=== PATIENT | female | born 1985 | race Two or more races ===

== ENCOUNTER 2024-11-02 20:51 | Observation (INO) | payer SELFPAY ==
[~2024-11-02] VITALS: Ht 162.6 cm; Wt 99.8 kg
[2024-11-02 21:44] LABS: Basophils # (auto) 0 10 ^3/uL (0-0.2); Eosinophils # (auto) 0 10 ^3/uL (0-0.8); Hemoglobin 10.7 g/dL (12.2-16.2); Lymphocytes # (auto) 1.5 10 ^3/uL (0.4-5.4); Monocytes # (auto) 0.6 10 ^3/uL (0-1.3)
[2024-11-02 21:47] LABS: Basophils % (auto) 0.3 % (0.0-2.0); Eosinophils % (auto) 0.5 % (0.0-7.0); Hematocrit 33.3 % (36.0-46.0); Lymphocytes % (auto) 16.6 % (10.0-50.0); Mean Corpuscular Hemoglobin 23.6 pg (28.0-32.0); Mean Corpuscular Hgb Conc. 32.2 g/dL (32.0-36.0); Mean Corpuscular Volume 73.3 fL (80.0-100.0); Monocytes % (auto) 6.7 % (0.0-12.0); Neutrophils % (auto) 75.9 % (37.0-80.0); Platelet Count (auto) 295 10^3/uL (140-450); Red Blood Cells 4.55 10^6/uL (4.0-5.20); Red Cell Distribution Width 17.3 % (11.8-14.3); White Blood Cell 9.2 10^3/uL (4.4-10.8)
[2024-11-02 21:53] LABS: Urine Bacteria FEW /hpf (None Seen); Urine Blood 1+ /uL (Negative); Urine Budding Yeast OCCASIONAL /hpf (None Seen); Urine Clarity Ex.Turbid (Clear); Urine Color Light-Violet (Yellow); Urine Protein, UAD TRACE (Negative); Urine Specific Gravity 1.013 (1.001-1.035); Urine Squamous Epithelial Cell FEW /hpf (<5); Urine Urobilinogen Normal (Negative); Urine WBC 6 /HPF (0-5); Urine pH 5.5 (5.0-9.0)
[2024-11-02 21:58] LABS: Alanine Aminotransferase 10 U/L (7-40); Albumin 3.8 g/dL (3.2-4.8); Anion Gap 12 (5-15); BUN/Creatinine Ratio 12.1 (10.0-20.0); Calcium 9.1 mg/dL (8.7-10.4); Chloride 106 mmol/L (98-107); Potassium 3.5 mmol/L (3.5-5.1); Sodium 137 mmol/L (136-145); Total Protein 6.6 g/dL (5.7-8.2)
[2024-11-02 21:59] LABS: Bilirubin, Total 0.3 mg/dL (0.2-1.0)
[2024-11-02 22:00] LABS: INR 0.91 (0.9-1.15); Partial Thromboplastin Time 27.6 SEC (24.5-34.5); Prothrombin Time 9.7 sec (9.3-11.8)
--- NOTE | 2024-11-02 22:00 | DVH ---
EXAM: US OB ULTRASOUND COMP GTR 14 WKS HISTORY: No PNC TECHNIQUE: Multiple real-time grayscale images of the gravid uterus with duplex Doppler color flow an d M-mode spectral analysis. COMPARISON: None FINDINGS: IUP single live fetus at 38 weeks 4 days average ultrasound age (AUA) based on composite averages of the BPD, head circumference, abdominal circumference and femur length Age based on (early ultrasound) : MEASUREMENTS: BPD: 9.05 cm GA: 36 w 5 d HC: 33.17 cm GA: 37 w 6 d AC: 35.63 cm GA: 39 w 4 d FL: 7.82 cm GA: 40 w 0 d Estimated weight 3,669 grams; 8 lbs 1 oz, 71.5 percentile. heart rate 156 beats per minute FIONA 13.67 cm, MVP ANATOMIC SURVEY: Single Vertex Presentation Fundal placenta without previa or abruption Cervix length not measured UMBILICAL ARTERY DOPPLER: Umbilical cord analysis demonstrates no reversal of flow and no diminished flow. Pulsatility index, resistive index and S/D ratio are within 50-95th percentile. Umbilical artery flow: No reversal of flow. Abdominal cord insertion: Pulsatility index 1.3, RI S/D ratio: Placental cord insertion: Pulsatility index 0.8, RI S/D ratio: Mid cord: Pulsatility index 1.0, RI S/D ratio: [email or web address] IMPRESSION: 1. IUP single live fetus at 38 weeks 4 days AUA corresponding to an TAVIA of 0525 2024. 2. No abnormality detected.
[2024-11-02 22:01] LABS: Alkaline Phosphatase 118 U/L (46-116); Aspartate Aminotransferase < 8 U/L (13-40); Blood Urea Nitrogen 8 mg/dL (9-23); Carbon Dioxide 19 mmol/L (20-31); Glucose 203 mg/dL (74-106)
[2024-11-02 22:09] LABS: Fern Testing Negative
[2024-11-02 22:12] LABS: Amphetamine Screen, Urine Neg (NEGATIVE)
[2024-11-02 22:32] LABS: Vaginal Bacteria Many; Vaginal Clue Cells None Seen; Vaginal Epithelial Cells Moderate; Vaginal Trichomonas Present
[2024-11-02 22:45] LABS: Barbiturate Scree,Urine Neg (NEGATIVE); Benzodiazephine Screen, Urine Neg (NEGATIVE); Cannabinoid Screen, Urine Neg (NEGATIVE); Opiate Scree,Urine Neg (NEGATIVE); Phencyclidine Screen, Urine Neg (NEGATIVE)
[2024-11-02] MEDS ORDERED: MET500T PO (23:00)
[2024-11-02] MEDS ORDERED: CEPH250C PO (23:00)
[2024-11-02 23:04] LABS: Cocaine Screen, Urine Neg (NEGATIVE)
--- NOTE | 2024-11-02 23:25 | DVHDS2 ---
Physician Discharge Progress N Final Diagnosis: 39 weeks gestation GDMA2 UTI Trichomans vaginalis Condition on Discharge: Good Disposition: Home Discharge Instructions: Diet: Consistent carbohydrate Diet comment: Diabetic diet Activity: No Restrictions, As Tolerated Follow Up/Referral: [facility] for Induction of labor on 11/05/24 and PRN Medications: Keflex 500mgs PO QID x 7D Flagyl 2gms PO once Continue Metformin as ordered Follow Up Care: Discharge Statement: "Patient was advised to return to the ER or call 911 if any headaches, dizziness, shortness of breath, chest pain, abdominal pain, bleeding, fevers, or worsening of medical condition. Patient was counseled about treatment plan, medications, possible side effects, patientverbalized understanding. All questions were answered to the best of my ability. This discharge took greater then 30 minutes in planning, reviewing documentation, counseling the patient, and discussing with other team members." Discharge Care Plan Problem Knowledge deficit, Increase in fluid intake Goals Know Disease Process, Verbalize understanding Instructions Take Rx medications, Notify MD of any issues Visit Coding OBGYN Date of Service: November 02, 2024 Billing Provider: GIULIA ROBERT CNM OUTSIDE SALES ENGINEER Common Visit Codes: [id number] OBS CARE (MOD) OUTSIDE SALES ENGINEER Procedure Codes: 21312-84- NON-STRESS TEST GIULIA ROBERT CNM November 02, 2024 23:25
== END 2024-11-02 23:54 | disposition home or self-care (01) ==
LOC: LDRP 20:51
PROVIDERS: ADMIT Obstetrics & Gynecology; ATTEND Obstetrics & Gynecology
DX: O23.43 Unspecified infection of urinary tract in pregnancy, third trimester (principal); N39.0 Urinary tract infection, site not specified; O24.419 Gestational diabetes mellitus in pregnancy, unspecified control; R53.1 Weakness; R79.1 Abnormal coagulation profile; Z3A.39 39 weeks gestation of pregnancy; Z79.899 Other long term (current) drug therapy; Z98.890 Other specified postprocedural states
CPT/HCPCS: 36415; 59025; 76805; 80053; 80307; 81001; 81002; 82948; 82962; 83036; 84112; 85025; 85610; 85730; 86703; 86780; 86850; 86900; 86901; 87086; 87210; 87340; 94760; G0378; Q0114

== ENCOUNTER 2024-11-05 19:04 | Observation (INO) | payer MEDICAID, OTHER ==
[~2024-11-05 19:04] MED LIST: CEPH250C PO; MET500T PO
--- NOTE | 2024-11-05 21:03 | DVH ---
BIOPHYSICAL PROFILE HISTORY: GDM A2 TECHNIQUE: Multiple transabdominal real-time grayscale sonographic images through the gravid uterus of the fetus with duplex Doppler color flow and M-mode spectral analysis FINDINGS: BIOPHYSICAL PROFILE: breathing score: 2 movement score: 2 tone score: 2 Quantitative FIONA score: 2 (FIONA: 20.8 Cm.) prior FIONA 13.7 cm on 11/02/2024. Current FIONA a taken twic e. Total score: 8/8 The cervix closed not measured Single live fetus in cephalic presentation. heart rate 148 beats per minute. Right lateral Grade 2 placenta without previa or abruption Single live fetus at 39 weeks 5 days Biophysical profile score 8/8 corresponding to an TAVIA of 11/07/2024 Estimated weight not calculated g IMPRESSION: 1. Biophysical profile score: 8/8
--- NOTE | 2024-11-06 02:53 | DVHDS2 ---
Physician Discharge Progress N Final Diagnosis: IUP with GDMA2, 39.5 week Secondary Diagnosis: Encounter for NST/BPP/FIONA Operations or Procedures: Operations or Procedures NST/BPP/ FIONA NST reactive BPP 01/26, FIONA adequate Commentary: Commentary status reassuring Condition on Discharge: Stable Disposition: Home Discharge Instructions: Diet: Consistent carbohydrate Activity: No Restrictions, As Tolerated Follow Up/Referral: [facility] to [facility] on [facility]24 at 1900 for Induction of Labor Medications: Continue all prescribed medications Follow Up Care: Discharge Statement: "Patient was advised to return to the ER or call 911 if any headaches, dizziness, shortness of breath, chest pain, abdominal pain, bleeding, fevers, or worsening of medical condition. Patient was counseled about treatment plan, medications, possible side effects, patientverbalized understanding. All questions were answered to the best of my ability. This discharge took greater then 30 minutes in planning, reviewing documentation, counseling the patient, and discussing with other team members." Visit Coding OBGYN Date of Service: November 06, 2024 Billing Provider: RAFFY VARGAS DO LABORER AMMUNITION ASSEMBLY Common Visit Codes: 94511-ILD/OBS SAME DATE (MOD) LABORER AMMUNITION ASSEMBLY Procedure Codes: 78252-19- NON-STRESS TEST RAFFY VARGAS DO November 06, 2024 02:53
== END 2024-11-05 21:43 | disposition home or self-care (01) ==
LOC: LDRP 19:04
PROVIDERS: ADMIT Obstetrics & Gynecology; ATTEND Obstetrics & Gynecology
DX: O24.419 Gestational diabetes mellitus in pregnancy, unspecified control (principal); Z98.890 Other specified postprocedural states; Z79.899 Other long term (current) drug therapy; Z3A.39 39 weeks gestation of pregnancy
CPT/HCPCS: 59025; 76819; 81002; G0378

== ENCOUNTER 2024-11-07 06:32 | Inpatient (IN) | payer MEDICAID ==
[~2024-11-07] VITALS: Ht 30.5 cm; Wt 0.5 kg
[2024-11-07] MEDS ORDERED: LIDOCAINE 2%HCL (LOCAL ANESTH.) INJ 20ML MDV IJ PRN (19:15)
[2024-11-07] MEDS ORDERED: NALBUPHINE HCL 10 MG/1ml INJECTION IV PRN (19:15)
[2024-11-07] MEDS ORDERED: PENICILLIN G POT 5MIL/D5 50ML 50 ML IV ONE (19:15)
[2024-11-07 19:50] LABS: Basophils # (auto) 0 10 ^3/uL (0-0.2); Eosinophils # (auto) 0 10 ^3/uL (0-0.8); Eosinophils % (auto) 0.4 % (0.0-7.0); Hemoglobin 10.9 g/dL (12.2-16.2); Lymphocytes # (auto) 1.7 10 ^3/uL (0.4-5.4); Monocytes # (auto) 0.6 10 ^3/uL (0-1.3)
[2024-11-07 19:52] LABS: Basophils % (auto) 0.5 % (0.0-2.0); Hematocrit 33.6 % (36.0-46.0); Lymphocytes % (auto) 18.9 % (10.0-50.0); Mean Corpuscular Hemoglobin 23.8 pg (28.0-32.0); Mean Corpuscular Hgb Conc. 32.5 g/dL (32.0-36.0); Mean Corpuscular Volume 73.1 fL (80.0-100.0); Monocytes % (auto) 6.5 % (0.0-12.0); Neutrophils # (auto) 6.7 10 ^3/uL (1.6-8.6); Neutrophils % (auto) 73.7 % (37.0-80.0); Platelet Count (auto) 300 10^3/uL (140-450); Red Blood Cells 4.59 10^6/uL (4.0-5.20); Red Cell Distribution Width 17.7 % (11.8-14.3); White Blood Cell 9.2 10^3/uL (4.4-10.8)
[2024-11-07 20:07] LABS: INR 0.92 (0.9-1.15); Partial Thromboplastin Time 27.6 SEC (24.5-34.5); Prothrombin Time 9.8 sec (9.3-11.8)
[2024-11-07 20:14] LABS: Albumin 3.9 g/dL (3.2-4.8); Anion Gap 10 (5-15); BUN/Creatinine Ratio 22.4 (10.0-20.0); Bilirubin, Total 0.3 mg/dL (0.2-1.0); Blood Urea Nitrogen 11 mg/dL (9-23); Calcium 9.2 mg/dL (8.7-10.4); Carbon Dioxide 21 mmol/L (20-31); Chloride 106 mmol/L (98-107); Glucose 106 mg/dL (74-106); Potassium 3.7 mmol/L (3.5-5.1); Sodium 137 mmol/L (136-145); Total Protein 6.8 g/dL (5.7-8.2)
[2024-11-07 20:16] LABS: Alanine Aminotransferase < 9 U/L (7-40); Alkaline Phosphatase 117 U/L (46-116); Aspartate Aminotransferase < 8 U/L (13-40)
--- NOTE | 2024-11-07 20:20 | DVHHP2 ---
OB CC & HPI Date Date of Admission: November 07, 2024 Patient Identification: : 2 Para: 1 EDC: November 07, 2024 EGA: 40.0 Chief Complaints: Reason for admission: induction of labor Indication for induction: medical complication (GDM, A2 and AMA) History of Present Complaints 39yo IUP@40.0wks presents for scheduled IOL for GDM, A2 Denies UCs/LOF/VB/VICK/vision changes/RUQ pain. Endorses +FM. PNC in [place] (no records available), PNC complicated by AMA and GDM,A2 on metformin per pt Dating based on LMP c/w 7wk sono per pt. GBS not done. OB hx: #1 - , 3300g, uncomplicated in 2006 #2 - current Past Medical History Cardiac: No pertinent Hx Pulmonary: No pertinent Hx Central Nervous System: No pertinent Hx GI: No pertinent Hx Hemotology/Oncology: No pertinent Hx Hepatobiliary: No pertinent Hx Psychiatric: No pertinent Hx Musculoskeletal: No pertinent Hx Rheumotologic: No pertinent Hx Infectious Disease: No peritnent Hx ENT: No pertinent Hx Renal/: No pertinent Hx Endocrine: No pertinent Hx Dermatology: No pertinent Hx Past Surgical History: No pertinent Hx OB History OB History Care: Good Care (per pt) Ultrasounds: Normal mid trimester US (per pt) Obstetrical Complications: Gestational Diabetes (A2) Medical Complications: None Allergies: Coded Allergies: NO KNOWN ALLERGIES (Unverified , 11/02/24) Home Meds Active Scripts Cephalexin (KEFLEX CAPSULE) 250 Mg Cp, 2 CAP PO QID, #56 CAP Prov:GIULIA ROBERT CNM 11/02/24 Metronidazole (Metronidazole) 500 Mg Tab, 2 GM PO ONCE, #1 TAB Do not drink alcohol Prov:GIULIA ROBERTM 11/02/24 Home Meds Pt is midway done with her course of keflex for UTI. She was not able to fill rx for metrondiazole to treat trichomoniasis and BV due to insurance issue. Current Medications Current Medications Medications (Trade) Dose Ordered Sig/Albertina Route PRN Reason Start Time Stop Time Status Last Admin Lactated Ringer's 1,000 ml @ 125 mls/hr Q8H IV 11/07/24 19:15 Nalbuphine HCl (Nubain) 10 mg Q4HP PRN IV MODERATE PAIN (4-6 PAIN SCALE) 11/07/24 19:15 Penicillin G Potassium [id number] units/Dextrose 50 ml @ 100 mls/hr Q4H IV 11/07/24 23:15 Witch Maddie (Tucks) 1 pad PRN PRN TOP PERINEAL AREA DISCOMFORT 11/07/24 19:15 Sodium Lauryl Sulfate (Phisoderm) 240 ml PRN PRN TOP PERINEAL AREA DISCOMFORT 11/07/24 19:15 Benzocaine (Dermoplast) 1 applic PRN PRN TOP PERINEAL AREA DISCOMFORT 11/07/24 19:15 Misoprostol (Cytotec) 50 mcg Q4HPRN PRN PO CERVICAL RIPENING 11/07/24 19:15 Lidocaine HCl (Xylocaine) 20 ml ONCE PRN IJ PERINEAL AREA DISCOMFORT 11/07/24 19:15 Family & Social History Family/Social History Past Family/Social History: denies Blood Type: A+ Rubella: immune RPR/VDRL: Negative GBS Status: Unknown HBsAG: Negative Review of Systems Constitutional: No symptom reported Ears, Nose, & Throat: No symptom reported Eyes: No symptom reported Pulmonary/Respiratory: No symptom reported Cardiovascular: No symptom reported Gastrointestinal: No symptom reported Genitourinary: No symptom reported Musculoskeletal: No symptom reported Skin: No symptom reported Psychiatric: No symptom reported Endocrine: No symptom reported Hemotologic/Lymphatic: No symptom reported OB Admission Exam Physical Exam Vitals: VSS, see CPN HEENT: TMs Normal, Fontanelles Normal, Nasal Mucosa Normal, Eyes non-injected, Oropharynx Normal, PERRLA, Moist Membranes, EOMI Heart: Rhythm Normal Lungs: Clear Abdomen: Gravid Extremities: Normal Reflexes: Normal Pelvic Exam: SVE by RN: 1/thick/-3 EFW on 11/02/24 by sono: 8lbs 1oz, vertex Membranes: Intact Heart Rate: 140's Accelerations: Accelerations Present Decelerations: No Decelerations Azure Principal Solution Specialist Variability: Average (6-25) Contractions on Admission: None OB Plan Plan Admitting Diagnosis: IOL for GDM, A2 and AMA Plan: Induction Induction Methd: Misoprostol protocol Other Plan: A: 39yo IUP@40.0wks Induction of Labor GDM, A2 AMA Category I EFM Intact Membranes GBS unknown P: Admit to L&D Informed consent obtained Discussed risks, benefits, alternatives of IOL for GDM, A2/AMA with pt. Pt consents to IOL with PO cytotec. Start IV PCN for GBS prophylaxis when pt is ROM or in active labor monitoring per order Routine labs ordered Pain mgmt PRN Frequent position changes in and out of bed encouraged Limit SVE unless necessary Intrauterine resuscitation PRN Anticipate Dr. Robles offered primary section, pt declined. Will continue to co- manage with Dr. Robles. Visit Coding OBGYN Date of Service: November 08, 2024 Billing Provider: KRUPA RODRIGUEZ CNM MILLER HEAD WET PROCESS Common Visit Codes: [id number] INP/OBS CARE (HIGH) KRUPA RODRIGUEZ CNM November 07, 2024 20:20
[2024-11-07 20:25] LABS: Urine Bacteria FEW /hpf (None Seen); Urine Blood TRACE /uL (Negative); Urine Clarity Turbid (Clear); Urine Color Yellow (Yellow); Urine Mucus FEW (None Seen); Urine Protein, UAD TRACE (Negative); Urine Specific Gravity 1.031 (1.001-1.035); Urine Squamous Epithelial Cell MOD /hpf (<5); Urine Urobilinogen Normal (Negative); Urine WBC 38 /HPF (0-5); Urine pH 5.5 (5.0-9.0)
[2024-11-07 20:37] LABS: Amphetamine Screen, Urine Neg (NEGATIVE); Barbiturate Scree,Urine Neg (NEGATIVE); Benzodiazephine Screen, Urine Neg (NEGATIVE); Cannabinoid Screen, Urine Neg (NEGATIVE); Cocaine Screen, Urine Neg (NEGATIVE); Opiate Scree,Urine Neg (NEGATIVE); Phencyclidine Screen, Urine Neg (NEGATIVE)
[2024-11-07] MEDS: miSOPROStol 50 MCG per PRE-CUT 1/2 TAB PO PRN (21:01)
[2024-11-07] MEDS: DERMOPLAST 60ML BOTTLE TOP PRN (21:02)
[2024-11-07] MEDS: PHISODERM TOP SOLN 240ML BTL TOP PRN (21:02)
[2024-11-07] MEDS: WITCH HAZEL-GLYCERIN PAD TOP PRN (21:02)
[2024-11-07] MEDS: cefTRIAXone 1GM/50ML D5W 50 ML IV STA (21:02)
[2024-11-07] MEDS: LACTATED RINGER'S 1,000 ML IV SCH (21:16)
[2024-11-07] MEDS: metroNIDAZOLE 500 MG TAB PO STA (21:37)
[2024-11-07] MEDS ORDERED: PENICILLIN G POTASSIUM 2,500,000 UNITS in D5W 5% 50 ML IV SCH (23:15)
[2024-11-08] VITALS (17 sets, daily range): BP systolic 107–139; BP diastolic 54–97; PULSE 70–103; RESP 14–16; TEMP 98–98.7; O2SAT 92–96
[2024-11-08] MEDS: ePHEDrine SULFATE 50 MG/ML AMP ONE (04:25)
[2024-11-08] MEDS: ROPIVACAINE HCL 200 ML ONE (05:23)
[2024-11-08] MEDS: PENICILLIN G POT 5MIL/D5 50ML 50 ML IV ONE (06:31)
[2024-11-08] MEDS ORDERED: MORPHINE SULF PF 5 MG/10 ML VIAL ONE (07:15)
[2024-11-08] MEDS ORDERED: fentaNYL CITRATE 100 MCG/2 ML VL ONE ×2 (07:15→07:16)
[2024-11-08] MEDS ORDERED: LACTATED RINGER'S 1,000 ML IV SCH (07:15)
[2024-11-08] MEDS ORDERED: SODIUM BICARB 8.4% 50Meq/50ml SYR Vial IV ONE (07:16)
[2024-11-08] MEDS ORDERED: LIDOCAINE 2% (LOCAL ANESTH.) PF 5ml SDV ONE (07:16)
[2024-11-08] MEDS ORDERED: ONDANSETRON HCL 4 MG/2 ML VIAL ONE (07:16)
[2024-11-08] MEDS ORDERED: ePHEDrine SULFATE 50 MG/ML AMP ONE (07:16)
[2024-11-08] MEDS ORDERED: MIDAZOLAM HCL 2MG/2ML 2ml VIAL (1mg/ml) ONE (07:16)
[2024-11-08] MEDS ORDERED: oxyTOCIN 10 UNIT/ML 10ML VIAL ONE (07:16)
[2024-11-08] MEDS: GUM (CHEWING) 1 GUM CHEW CHEW ONE (07:30)
[2024-11-08] MEDS ORDERED: ONDANSETRON HCL 4 MG/2 ML VIAL IV PRN (07:30)
--- NOTE | 2024-11-08 07:30 | DVHHP ---
ADMIT DATE: 11/08/2024 CHIEF COMPLAINT: Nonreassuring heart tracing, repetitive deceleration, fetus at risk. HISTORY OF PRESENT ILLNESS: The patient is a 39-year-old 2, para 1 with due date 11/07, estimated gestational age of 40 weeks, admitted for induction of labor. The patient has had limited care, poorly controlled diabetes and she is advanced maternal age. The patient was admitted, received Cytotec, however started having deceleration for which the patient is being taken for primary for nonreassuring heart tracing, fetus at risk. PAST MEDICAL HISTORY: None. PAST SURGICAL HISTORY: None. SOCIAL HISTORY: None. FAMILY HISTORY: None. ACID RETORT OPERATOR HISTORY: One vaginal delivery. REVIEW OF SYSTEMS: Consistent with HPI. ALLERGIES: No known drug allergies. PHYSICAL EXAMINATION: VITAL SIGNS: Stable, afebrile. HEENT: Within normal limits. CARDIOVASCULAR: Regular rate and rhythm. LUNGS: Clear to auscultation. BREASTS: Symmetrical, no masses. ABDOMEN: Gravid. Positive heart. PELVIC: 4 cm, 60%, -3. EXTREMITIES: No clubbing, cyanosis, or edema. IMPRESSION: * Intrauterine at 40+ weeks. * Induction of labor failed due to nonreassuring ultrasound, fetus at risk. * AMA. * GDMA2, poorly controlled. * Limited care. PLAN: Primary low transverse section. Informed consent obtained. Risks and complications of surgery including infection, bleeding, hematoma formation, injury to bowel or bladder, surrounding organs, possibility of DVT, pulmonary embolism, and risks of anesthesia discussed with the patient. Options reviewed. All questions answered. The patient fully understands. She wishes to proceed with planned procedure. DO JOVANNI Dunlap/JEROME TID: [id number] RECEIPT: [id number]
[2024-11-08] MEDS: CARBOPROST TROMETHAMINE 250 MCG/1ML VIAL IM ONE ×3 (08:03→10:03)
--- NOTE | 2024-11-08 09:08 | DVHOP2 ---
Operative Report DATE OF OPERATION: 11/08/24 PREOPERATIVE DIAGNOSES: Term with nonreassuring fht ,fetus at risk,ama,poorly controlled gdma2,limited care POSTOPERATIVE DIAGNOSES: same,op,uterine atony SURGEON: Sia Robles D.O./david ANESTHESIOLOGIST: kishor TYPE OF ANESTHESIA : epidural CONSENT: The patient was informed of the risks and benefits of the procedure. The patient was informed of the risks and benefits of the procedure. These include but are not limited to , complications of anesthesia, postoperative infection, incomplete relief of symptoms, recurrence of symptoms, damage to blood vessels, nerves and tendons, deep venous thrombosis, pulmonary embolism and possible need for repeat surgery in the future. FINDINGS: Baby [boy] with Apgars of [8] and [9]. Grossly normal appearing tubes and ovaries.op PROCEDURES: Primary low transverse section. PROCEDURE IN DETAIL: The patient was taken to the operating room. She already had an epidural in place. She was then placed in supine position with a leftward tilt. A Pfannenstiel skin incision was made 2 cm above the symphysis pubis. This incision was carried to the underlying layer of fascia. The fascia was nicked in the midline. The incision was extended laterally. The superior aspect of the fascial incision was grasped and elevated. The same procedure was done to the inferior aspect of the fascial incision. The rectus muscles were then in the midline. Peritoneum was identified and entered. Peritoneal incision was extended superiorly and inferiorly with good visualization of the bladder. Bladder blade was inserted. Vesicouterine peritoneum was identified and entered. Lower uterine segment was incised in a transverse fashion. The infant was delivered from vertex presentation. Infant was baby b with Apgars [8] and [9]. Placenta was then removed manually. Uterus was exteriorized and cleared of all clots and debris.uterine atony noted which was managed by hemobate. The incision was repaired using 0 Vicryl in a double-layered fashion. No bleeding was noted. Uterus was then returned to the abdomen. The gutters were cleared off all clots and debris. Peritoneum was closed using 0 Vicryl, fascia was closed using 0 Maxon, and skin was closed using ron. The patient tolerated the procedure well. She was taken to the recovery room in stable condition. ESTIMATED BLOOD LOSS: Estimated blood loss was noted to be 1000 mL. Visit Coding OBGYN Date of Service: November 08, 2024 Billing Provider: SIA ROBLES DO TRUCK SALES MANAGER Common Visit Codes: 83146-[id number] INP/OBS CARE (HIGH) TRUCK SALES MANAGER Procedure Codes: 22585-X-OSLNMRN DELIVERY ONLY SIA ROBLES DO November 08, 2024 09:08
--- NOTE | 2024-11-08 09:10 | POSTOP ---
Post-Operative Note Post-Operative Note Preop Diagnosis iup at 40wks fetus at risk,am,a,gdm,limited care Postop Diagnosis: saME,OP,UTERINE ATONY Operation performed PLTCS Specimen BABY BOY,APAGRS 8-9,OP Anesthesia: Regional Anesthesiologist: ROLF Blood Loss(fluid mgmt) 1000ML Surgeon Chandra Robles Executive Account Manager LEN Implant NA Complications & Mgmt NONE Date 11/08/24 Time 09:08 Visit Coding OBGYN Date of Service: November 08, 2024 Billing Provider: CHANDRA ROBLES DO ADMISSION NURSE COORDINATOR Common Visit Codes: [id number] INP/OBS CARE (HIGH) ADMISSION NURSE COORDINATOR Procedure Codes: 56065-Z-[id number] DELIVERY ONLY CHANDRA ROBLES DO November 08, 2024 09:10
[2024-11-08] MEDS ORDERED: FER325T PO (09:13)
[2024-11-08] MEDS ORDERED: CEPH500T PO (09:13)
[2024-11-08] MEDS ORDERED: DOCU-94 PO (09:13)
[2024-11-08] MEDS ORDERED: HYDR-4072 PO (09:13)
[2024-11-08] MEDS ORDERED: IBUP-1456 PO (09:13)
[2024-11-08] MEDS ORDERED: HYDROmorphone HCL 2 MG/ML VL/or syr IV PRN ×2 (09:30)
[2024-11-08] MEDS ORDERED: diphenhdrAMINE HCL 50 MG/1 ML VL IV PRN (09:30)
[2024-11-08] MEDS ORDERED: MORPHINE SULFATE INJ 2 MG/ml SYRG IV PRN (09:30)
[2024-11-08] MEDS ORDERED: MORPHINE SULFATE 4 MG/ML SYR/VIAL IV PRN (09:30)
[2024-11-08] MEDS ORDERED: NALOXONE HCL 0.4 MG/ML VIAL IV PRN ×2 (09:30)
[2024-11-08] MEDS: PENICILLIN G POTASSIUM 2,500,000 UNITS in D5W 5% 50 ML IV SCH (10:00)
[2024-11-08] MEDS: LACT. RINGERS/OXYTOCIN 20UNITS 500 ML IV ONE ×2 (10:01→13:22)
[2024-11-08] MEDS: ePHEDrine SULFATE 50 MG/ML AMP IV ONE (10:01)
[2024-11-08] MEDS: LIDOCAINE HCL 2 %PF INJ 10ML AMP IJ ONE ×2 (10:02)
[2024-11-08] MEDS: SUCCINYLCHOLINE CHLORIDE 20 MG/ML 10ML VIAL IV ONE (10:02)
[2024-11-08] MEDS: ROCURONIUM 10MG/ML 10ML VIAL IV ONE (10:02)
[2024-11-08] MEDS: LACTATED RINGER'S 1,000 ML IV ONE (10:02)
[2024-11-08] MEDS: LACT. RINGERS/OXYTOCIN 20UNITS 1,000 ML IV ONE (10:03)
[2024-11-08] MEDS: DIPHENOXYLATE W/ATROPINE 2.5 MG TAB ONE (10:03)
[2024-11-08] MEDS: KETOROLAC TROMETH 30 MG/ML 1ML VIAL IV ONE (10:04)
[2024-11-08] MEDS: ACCU-CHEK COMFORT CURVE STRIP VI ONE (10:04)
[2024-11-08] MEDS: METOCLOPRAMIDE HCL 5MG/ml INJ 2ml VIAL IV ONE (10:04)
[2024-11-08] MEDS ORDERED: ACETAMINOPHEN IV 1000 MG/100ML (10MG/ML) IV PRN (10:30)
[2024-11-08] MEDS: ACETAMINOPHEN IV 1000 MG/100ML (10MG/ML) IV PRN (11:07)
[2024-11-08] MEDS: ceFAZolin 1GM/50ML 50 ML IV SCH ×2 (14:05→21:41)
[2024-11-08 20:01] LABS: Basophils # (auto) 0 10 ^3/uL (0-0.2); Basophils % (auto) 0.3 % (0.0-2.0); Eosinophils # (auto) 0 10 ^3/uL (0-0.8); Eosinophils % (auto) 0.2 % (0.0-7.0); Hematocrit 29.3 % (36.0-46.0); Hemoglobin 9.3 g/dL (12.2-16.2); Lymphocytes # (auto) 1.3 10 ^3/uL (0.4-5.4); Lymphocytes % (auto) 10.4 % (10.0-50.0); Mean Corpuscular Hemoglobin 23.5 pg (28.0-32.0); Mean Corpuscular Hgb Conc. 31.7 g/dL (32.0-36.0); Monocytes % (auto) 7.7 % (0.0-12.0); Neutrophils % (auto) 81.4 % (37.0-80.0); Platelet Count (auto) 267 10^3/uL (140-450); Red Blood Cells 3.96 10^6/uL (4.0-5.20); Red Cell Distribution Width 17.6 % (11.8-14.3); White Blood Cell 12.3 10^3/uL (4.4-10.8)
[2024-11-09] VITALS (12 sets, daily range): BP systolic 104–127; BP diastolic 44–72; PULSE 72–86; RESP 16–17; TEMP 97.7–98.9; O2SAT 93–96
--- NOTE | 2024-11-09 01:06 | DVHPN2 ---
Progress Note Date Seen: November 09, 2024 Subjective S: bleeding is less, advancing diet as tolerated, denies lightheaded/dizziness, pain well controlled with oral medications, no concerns with urinating, no flatus/BM yet, ambulating well, well vital signs Vital Sign Date Time Temp Pulse Resp B/P (MAP) Pulse Ox O2 Delivery O2 Flow Rate FiO2 11/08/24 19:00 Room Air 11/08/24 19:00 98.7 101 16 113/67 (82) 94 98.7 11/08/24 08:44 96 Total Intake and Output 11/08/24 11/08/24 11/09/24 15:00 23:00 07:00 Output Total 1000 ml 200 ml Balance -1000 ml -200 ml medications Current Medications Medications Dose Ordered Sig/Albertina Route Start Time Stop Time Status Last Admin Dose Admin Lactated Ringer's 1,000 ml @ 125 mls/hr Q8H IV 11/07/24 19:15 11/08/24 11:07 125 MLS/HR Renetta Perkins 1 pad PRN PRN TOP 11/07/24 19:15 11/07/24 21:02 1 PAD Sodium Lauryl Sulfate 240 ml PRN PRN TOP 11/07/24 19:15 11/07/24 21:02 240 ML Benzocaine 1 applic PRN PRN TOP 11/07/24 19:15 11/07/24 21:02 1 APPLIC Lidocaine HCl 20 ml ONCE PRN IJ 11/07/24 19:15 Lactated Ringer's 1,000 ml @ 125 mls/hr Q8H IV 11/08/24 07:15 Ondansetron HCl 4 mg Q4HP PRN IV 11/08/24 07:30 Acetaminophen 1,000 mg Q8HPRN PRN IV 11/08/24 11:00 11/09/24 06:01 11/08/24 22:37 1,000 MG Cefazolin Sodium 50 ml @ 100 mls/hr Q8H IV 11/08/24 22:00 11/09/24 06:29 11/08/24 21:41 100 MLS/HR laboratory and microbiology Laboratory Tests 11/08/24 19:50 11/07/24 19:36 Test 11/07/24 19:36 Range/Units Serum Glucose 106 74-106 mg/dL Objective O: VSS Chest: heart sounds normal and lung sounds clear bilaterally Abd: soft, non-tender, fundus at U/firm/midline, active bowel sounds, no rebound or guarding Incision: sylke dressing open to air, clean/dry/intact with 25% new drainage noted Ext: Non-tender, No edema, 2+ BLE DTRs Lochia: minimal See lab results Problems(with codes): (1) Precipitous drop in hematocrit (2) S/P primary low transverse Assessment/Plan A/P: 39yo now POD#1 s/p primary -Continue with routine post-op PP care Plan discussed with: Patient, Daughter Visit Coding OBGYN Date of Service: November 09, 2024 Billing Provider: KRUPA RODRIGUEZ CNM FINANCIAL PLANNING ANALYST Common Visit Codes: [id number] INP/OBS CARE(HIGH) KRUPA RODRIGUEZ CNM November 09, 2024 01:05
[2024-11-09] MEDS ORDERED: BISACODYL 10 MG RECT SUPP PR PRN (06:45)
[2024-11-09] MEDS ORDERED: HYDROcodone-ACET 5/325MG TAB PO PRN (06:45)
[2024-11-09 06:50] LABS: Basophils # (auto) 0 10 ^3/uL (0-0.2); Basophils % (auto) 0.2 % (0.0-2.0); Eosinophils # (auto) 0 10 ^3/uL (0-0.8); Hemoglobin 8.6 g/dL (12.2-16.2); Lymphocytes # (auto) 1.4 10 ^3/uL (0.4-5.4); Mean Corpuscular Volume 73.9 fL (80.0-100.0); Monocytes # (auto) 0.9 10 ^3/uL (0-1.3); Monocytes % (auto) 7.9 % (0.0-12.0); Neutrophils # (auto) 9.2 10 ^3/uL (1.6-8.6); White Blood Cell 11.5 10^3/uL (4.4-10.8)
[2024-11-09 06:53] LABS: Eosinophils % (auto) 0.3 % (0.0-7.0); Hematocrit 26.6 % (36.0-46.0); Lymphocytes % (auto) 11.8 % (10.0-50.0); Mean Corpuscular Hemoglobin 23.9 pg (28.0-32.0); Mean Corpuscular Hgb Conc. 32.3 g/dL (32.0-36.0); Neutrophils % (auto) 79.8 % (37.0-80.0); Platelet Count (auto) 244 10^3/uL (140-450)
[2024-11-09] MEDS: HYDROcodone-ACET 5/325MG TAB PO PRN (07:32)
[2024-11-09] MEDS: DOCUSATE SOD 100 MG CAP PO SCH (10:00)
[2024-11-09] MEDS: SIMETHICONE 80 MG CHEWABLE TABLET PO SCH (12:00)
[2024-11-09] MEDS: IBUPROFEN 800 MG TAB PO PRN (15:56)
[2024-11-10 03:00] VITALS: BP 107/61; PULSE 107; RESP 17; TEMP 98.3; O2SAT 95
--- NOTE | 2024-11-10 06:28 | DVHPN2 ---
Chief Complaints Patient reports: No new complaints (Doing well. Pt is ambulating and voiding freely, passing gas, tolerating a regular diet and pain has been well controlled. Pt denies any s/s of depression) Nursing reports: No new complaints Objective Vitals Vital Signs Date Time Temp Pulse Resp B/P (MAP) Pulse Ox O2 Delivery O2 Flow Rate FiO2 11/10/24 03:00 98.3 107 17 107/61 (76) 95 98.3 11/09/24 18:30 Room Air 11/08/24 08:44 96 Medications Current Medications Medications (Trade) Dose Ordered Sig/Albertina Route PRN Reason Start Time Stop Time Status Last Admin Acetaminophen/ Hydrocodone Bitart (Deville 5/325MG Tab) 1 tab Q4HPRN PRN PO FOR PAIN 1-6 11/09/24 06:45 Acetaminophen/ Hydrocodone Bitart (Deville 5/325MG Tab) 2 tab Q4HPRN PRN PO FOR PAIN 7-10 11/09/24 06:45 11/09/24 21:58 Bisacodyl (Dulcolax Suppository) 10 mg DAILYP PRN [place] FOR CONSTIPATION 11/09/24 06:45 Dimethicone (Mylicon Tab) 80 mg QID PO 11/09/24 12:00 11/10/24 05:23 Docusate Sodium (Colace Capsule) 100 mg Q12HR PO 11/09/24 10:00 11/09/24 21:59 General: Normal (VSS, Pt is afebrile) Head/Eyes: Normal (Denies VICK or dizziness) ENT: Normal Neck: Normal, Supple Lungs: Normal, Normal breath sounds Cardiovascular: Normal, Regular rate and rhythm Abdominal: Normal (Incision: Dressing removed, C/D/I and left open to air), Soft, Non tender Musculoskeletal: Normal Extremities: Normal (Bilateral negative Moni's sign), No edema Neurological: Normal (No deficeits) Others Lochia: Minamal Studies Laboratory Tests 11/09/24 06:00 11/07/24 19:36 Test 11/07/24 19:36 Range/Units Serum Glucose 106 74-106 mg/dL Ass/Plan Assessment S/P Primary section Post-op Day 2 in stable condition Plan Motrin 800 mg po TID PRN for pain Continue vitamins 6 weeks pelvic rest Rt education Re: , contraception pain meds, wound care and self and infant care May discharge home Follow up with Dr Robles in 1 week or RRN for acute complications Visit Coding OBGYN Date of Service: November 10, 2024 Billing Provider: LO DOVE CNM LITIGATION ASSOCIATE Common Visit Codes: 71670-LLQ/OBS DISCH DAY <30MIN LO DOVE CNM November 10, 2024 06:28
--- NOTE | 2024-11-10 06:33 | DVHDS2 ---
Obstetrics Discharge Summary Obstetrics Discharge Summary Date of Admission: November 07, 2024 Date of Discharge: November 10, 2024 Reason For Admission: Onset of Labor Procedures: Ultrasound Intrapartum Procedures: (LUST) Procedures: Antibiotics Operative Complicat: None Discharge Diagnosis: Term -Delivered Discharge Information: Activity, Diet (Routine), Medications (Motrin Continue vitamins), Instructions (Follow u[ with Dr Robles in 1 week), Discharge to (Home), Accompanied by (Family member), Discarge date (11/09/24) Discharge Care Plan Problem Pain Goals Pain controlled Instructions Take Rx medications See pt D/C handouts As stated above Visit Coding OBGYN Date of Service: November 10, 2024 Billing Provider: LO DOVE CNM REGISTER OF DEEDS Common Visit Codes: 81989-VOR/OBS DISCH DAY <30MIN LO DOVE CNM November 10, 2024 06:33
[2024-11-10 07:15] VITALS: BP 116/54; PULSE 79; RESP 18; TEMP 97.7; O2SAT 95
[2024-11-10] MEDS: TETANUS-DIPTH-ACEL PERTUSSIS 0.5ML SYR Tdap IM ONE (08:47)
== END 2024-11-10 09:53 | disposition home or self-care (01) | DRG 540 ==
LOC: OBSVTOIN 19:01 → LDRP 19:01
PROVIDERS: ADMIT Obstetrics & Gynecology; ATTEND Obstetrics & Gynecology
PROC: 10D00Z1 Extraction of Products of Conception, Low, Open Approach (ICD-10-PCS; principal; 2024-11-08 07:26)
DX: O24.425 Gestational diabetes mellitus in childbirth, controlled by oral hypoglycemic drugs (principal); R71.0 Precipitous drop in hematocrit; O48.0 Post-term pregnancy; O62.2 Other uterine inertia; Z37.0 Single live birth; Z3A.40 40 weeks gestation of pregnancy
CPT/HCPCS: 36415; 59025; 62282; 80053; 80307; 81001; 82948; 82962; 85025; 85610; 85730; 86762; 86780; 86803; 86850; 86900; 86901; 90715; 94760; 94762; 96360; 96361; 96372; G0378; J0131; J0330; J2003; J2250; J2405; J2540; J2590; J7060